=== PATIENT | female | born 1980 | race African-American/Black ===

== ENCOUNTER 2017-02-05 10:57 | Emergency (ER) | payer OTHER ==
[2017-02-05 11:05] VITALS: BMI 23.8
[2017-02-05 11:31] LABS: BASOPHIL 0.8 % (0-2.0); EOSINOPHIL 5.6 % (0-4.5); MCH 31.3 pg (25.7-33.7); MEAN PLT VOLUME 7.4 fl (7.5-11.1); PLATELET COUNT 255 K/MM3 (134-434); RDW 13.4 % (11.6-15.6); WHITE BLOOD COUNT 6.6 K/mm3 (4.0-10.0)
[2017-02-05 11:58] LABS: ALBUMIN 3.5 g/dl (3.4-5.0); ANION GAP 8 (8-16); BILIRUBIN,TOTAL 0.7 mg/dL (0.2-1.0); CALCIUM 8.5 mg/dL (8.5-10.1); CO2 28 mmol/L (21-32); CREATININE 0.5 mg/dL (0.55-1.02); GLUCOSE,RANDOM 79 mg/dL (74-106); SGOT/AST 18 U/L (15-37); SGPT/ALT 11 U/L (12-78)
[2017-02-05 12:00] LABS: ALK PHOS 47 U/L (45-117)
[2017-02-05 12:41] LABS: URINE APPEARANCE CLEAR; URINE COLOR RED; URINE GLUCOSE (UA) NEGATIVE (NEGATIVE); URINE KETONE NEGATIVE (NEGATIVE); URINE NITRITE NEGATIVE (NEGATIVE); URINE UROBILINOGEN 4.0 E.U/dl E.U./dl (0.2-1.0)
[2017-02-05 12:45] LABS: URINE BLOOD 3+ (NEGATIVE); URINE LEUK ESTERASE 2+ (NEGATIVE); URINE PROTEIN 2+ (NEGATIVE)
[2017-02-05 12:46] LABS: URINE BACTERIA RARE /hpf (NONE SEEN); URINE MUCUS MODERATE; URINE RBC 101 /hpf (0-3); URINE WBC 87 /hpf (3-5)
--- NOTE | 2017-02-05 13:14 | PDOC ---
History of Present Illness - General History Source: Patient - History of Present Illness Timing/Duration: reports: constant Quality: reports: moderate <Toby Cuevas - Last Filed: 02/05/17 14:05> <Elio Ramires - Last Filed: 02/07/17 20:02> - General Chief Complaint: Pain Stated Complaint: ABD PAIN Time Seen by Provider: 02/05/17 11:09 Past History - Past Medical History Anemia: Yes Asthma: No Cancer: No Cardiac Disorders: No Diabetes: No HTN: No Seizures: No Thyroid Disease: No - Reproductive History Is Patient Now?: No (#): 10 Para: 4 Therapeutic (s) & number: Yes (3) Spontaneous : 2 - Psycho/Social/Smoking Cessation Hx Anxiety: No Suicidal Ideation: No Smoking Status: No Smoking History: Never smoked Number of Cigarettes Smoked Daily: 0 Hx Alcohol Use: No Drug/Substance Use Hx: No Substance Use Type: None Hx Substance Use Treatment: No <Toby Cuevas - Last Filed: 02/05/17 14:05> <Elio Ramires - Last Filed: 02/07/17 20:02> - Past Medical History Allergies/Adverse Reactions: Allergies Allergy/AdvReac Type Severity Reaction Status Date / Time No Known Allergies Allergy Verified 02/05/17 11:04 Home Medications: Ambulatory Orders Amoxicillin/Potassium Clav [Augmentin 875-125 Tablet] 1 each PO BID #10 tablet 11/25/16 Methylergonovine Maleate [Methergine] 0.2 mg PO Q6H #3 tablet 02/05/17 Review of Systems - Review of Systems Constitutional: No: Chills, Fever ABD/GI: Yes: Abdominal cramping. No: Constipated, Nausea, Vomiting : Yes: Other (vag bleeding). No: Flank Pain Musculoskeletal: No: Back Pain <Toby Cuevas - Last Filed: 02/05/17 14:05> *Physical Exam - Vital Signs Last Vital Signs Temp Pulse Resp BP Pulse Ox 98.9 F 88 20 115/83 100 02/05/17 11:01 02/05/17 11:01 02/05/17 11:01 02/05/17 11:01 02/05/17 11:01 - Physical Exam General Appearance: Yes: Appropriately Dressed. No: Apparent Distress HEENT: positive: Normal Voice Neck: positive: Supple Respiratory/Chest: negative: Respiratory Distress Female Pelvic Exam: positive: vaginal bleeding (sig vag bleed, os closed) Gastrointestinal/Abdominal: positive: Normal Bowel Sounds, Tender, Soft. negative: Distended, Guarding Integumentary: positive: Dry, Warm Neurologic: positive: Fully Oriented, Alert, Normal Mood/Affect <Toby Cuevas - Last Filed: 02/05/17 14:05> - Vital Signs Last Vital Signs Temp Pulse Resp BP Pulse Ox 99.1 F 57 L 16 103/59 99 02/05/17 15:21 02/05/17 15:21 02/05/17 15:21 02/05/17 15:21 02/05/17 15:21 <Elio Ramires - Last Filed: 02/07/17 20:02> ED Treatment Course - LABORATORY CBC & Chemistry Diagram: 02/05/17 11:12 02/05/17 11:12 - ADDITIONAL ORDERS Additional order review: Laboratory Results 02/05/17 11:12 Sodium 142 Potassium 3.1 L Chloride 106 Carbon Dioxide 28 Anion Gap 8 BUN 7 D Creatinine 0.5 L D Creat Clearance w eGFR > 60 Random Glucose 79 Calcium 8.5 Total Bilirubin 0.7 AST 18 ALT 11 L Alkaline Phosphatase 47 Total Protein 7.0 Albumin 3.5 Beta HCG, Quant 639.3 02/05/17 11:12 RBC 3.38 L MCV 92.0 MCHC 34.0 RDW 13.4 D MPV 7.4 L Neutrophils % 59.0 D Lymphocytes % 28.0 D Monocytes % 6.6 Eosinophils % 5.6 H D Basophils % 0.8 - RADIOLOGY Radiology Studies Ordered: Category Date Time Status PELVIS(OTHER) US [US] Stat Ultrasound 02/05/17 12:27 Ordered TRANSVAGINAL ULTRASOUND US [US] Stat Ultrasound 02/05/17 12:28 Ordered <Toby Cuevas - Last Filed: 02/05/17 14:05> - LABORATORY CBC & Chemistry Diagram: 02/05/17 11:12 02/05/17 11:12 - ADDITIONAL ORDERS Additional order review: 02/05/17 11:12 RBC 3.38 L MCV 92.0 MCHC 34.0 RDW 13.4 D MPV 7.4 L Neutrophils % 59.0 D Lymphocytes % 28.0 D Monocytes % 6.6 Eosinophils % 5.6 H D Basophils % 0.8 - Medications Given in the ED: ED Medications Discontinued Medications Generic Name Dose Route Start Last Admin Trade Name Yuridia PRN Reason Stop Dose Admin Acetaminophen 650 mg 02/05/17 13:38 02/05/17 14:00 Tylenol - PO 02/05/17 13:39 650 mg ONCE ONE Administration Methylergonovine Maleate 0.2 mg 02/05/17 13:56 02/05/17 14:25 Methergine - PO 02/05/17 13:57 0.2 mg ONCE ONE Administration <Elio Ramires - Last Filed: 02/07/17 20:02> Medical Decision Making - Medical Decision Making 02/05/17 12:36 36 yo F, (4 elec ABs, 1 spon AB), s/p D&C at OSH 9 days ago and states she was felling well until 3 dys ago when pt began having lower abd cramping w/ bloating and sig vag bleed w/ clots. No n/v/f/c or dysuria. No change in BM See exam Abd pain and vag bleed s/p recent D&C R/o RPOC Stable w/ +ttp diffusely to lower abd and sig vag bleed -labs -US 02/05/17 13:16 02/05/17 13:37 2.7 heterogeneous material in uterine cavity on US, ?clotted blood vc retained POC. Labs wnl and pt remains stable. Will c/w REFRIGERATOR ASSEMBLER for recs 02/05/17 13:41 02/05/17 14:02 As per d/w Dr Ernst, rec 4 doses or methergine over the next 24 hrs and for pt to f/u with growth media mixer mushroom 02/05/17 14:05 <Toby Cuevas - Last Filed: 02/05/17 14:05> - Medical Decision Making 02/07/17 20:02 The patient was seen and evaluated in conjunction with CARRIE Cuevas under my direct supervision, ancillary studies were reviewed. I agree with the plan as outlined by CARRIE Cuevas . <Elio Ramires - Last Filed: 02/07/17 20:02> *DC/Admit/Observation/Transfer <Cele Cuevas-Mini - Last Filed: 02/05/17 14:05> <IkeFidencioElio - Last Filed: 02/07/17 20:02> Diagnosis at time of Disposition: Vaginal bleeding - Discharge Dispostion Disposition: HOME Condition at time of disposition: Stable - Prescriptions Prescriptions: Methylergonovine Maleate [Methergine] 0.2 mg PO Q6H #3 tablet - Patient Instructions Printed Discharge Instructions: Therapeutic : Surgical Additional Instructions: Take medication as directed and contact growth media mixer mushroom tomorrow for follow up appt next week
[2017-02-05] MEDS ORDERED: ACETAMINOPHEN 325 MG TABLET (FP) PO ONE (13:38)
[2017-02-05] MEDS ORDERED: METHYLERGONOVINE MALEATE 0.2 MG TABLET (FP) PO ONE (13:56)
[2017-02-05] MEDS ORDERED: ACETAMINOPHEN 325 MG TABLET (FP) ONE (13:57)
--- NOTE | 2017-02-05 15:08 | PDOC ---
*Physical Exam - Vital Signs Last Vital Signs Temp Pulse Resp BP Pulse Ox 98.9 F 88 20 115/83 100 02/05/17 11:01 02/05/17 11:01 02/05/17 11:01 02/05/17 11:01 02/05/17 11:01 ED Treatment Course - LABORATORY CBC & Chemistry Diagram: 02/05/17 11:12 02/05/17 11:12 - ADDITIONAL ORDERS Additional order review: Laboratory Results 02/05/17 02/05/17 11:52 11:12 Sodium 142 Potassium 3.1 L Chloride 106 Carbon Dioxide 28 Anion Gap 8 BUN 7 D Creatinine 0.5 L D Creat Clearance w eGFR > 60 Random Glucose 79 Calcium 8.5 Total Bilirubin 0.7 AST 18 ALT 11 L Alkaline Phosphatase 47 Total Protein 7.0 Albumin 3.5 Beta HCG, Quant 639.3 Urine Color Red Urine Appearance Clear Urine pH 6.0 Ur Specific [place] 1.023 Urine Protein 2+ H Urine Glucose (UA) Negative Urine Ketones Negative Urine Blood 3+ H Urine Nitrite Negative Urine Bilirubin 2.0 Urine Urobilinogen 4.0 e.u/dl H Ur Leukocyte Esterase 2+ H Urine RBC 101 Urine WBC 87 Ur Epithelial Cells Moderate Urine Bacteria Rare Urine Mucus Moderate 02/05/17 11:12 RBC 3.38 L MCV 92.0 MCHC 34.0 RDW 13.4 D MPV 7.4 L Neutrophils % 59.0 D Lymphocytes % 28.0 D Monocytes % 6.6 Eosinophils % 5.6 H D Basophils % 0.8 - RADIOLOGY Radiology Studies Ordered: Category Date Time Status PELVIS(OTHER) US [US] Stat Ultrasound 02/05/17 12:27 Completed TRANSVAGINAL ULTRASOUND US [US] Stat Ultrasound 02/05/17 12:28 Completed - Medications Given in the ED: ED Medications Discontinued Medications Generic Name Dose Route Start Last Admin Trade Name Freq PRN Reason Stop Dose Admin Acetaminophen 650 mg 02/05/17 13:38 02/05/17 14:00 Tylenol - PO 02/05/17 13:39 650 mg ONCE ONE Administration Methylergonovine Maleate 0.2 mg 02/05/17 13:56 02/05/17 14:25 Methergine - PO 02/05/17 13:57 0.2 mg ONCE ONE Administration *DC/Admit/Observation/Transfer Diagnosis at time of Disposition: Vaginal bleeding - Discharge Dispostion Disposition: HOME Condition at time of disposition: Stable - Prescriptions Prescriptions: Methylergonovine Maleate [Methergine] 0.2 mg PO Q6H #3 tablet - Referrals - Patient Instructions Printed Discharge Instructions: Therapeutic : Surgical Additional Instructions: Take medication as directed and contact greaser operator tomorrow for follow up appt next week - Post Discharge Activity
[2017-02-05 15:23] VITALS: BP 103/59; PULSE 57; TEMP 99.1
== END 2017-02-05 15:23 | disposition home or self-care (01) ==
LOC: JER 10:57
DX: O03.1 Delayed or excessive hemorrhage following incomplete spontaneous abortion (principal)
CPT/HCPCS: 36415; 76830-TC; 76856-TC; 80053; 81003; 81015; 84702; 85025; 99281-25

== ENCOUNTER 2017-03-09 12:44 | Emergency (ER) | payer OTHER ==
[2017-03-09 12:57] VITALS: BMI 23.8
--- NOTE | 2017-03-09 13:38 | PDOC ---
History of Present Illness - General Chief Complaint: Pain Stated Complaint: ABD PAIN Time Seen by Provider: 03/09/17 13:21 History Source: Patient Exam Limitations: No Limitations - History of Present Illness Travel History: No Initial Comments: 03/09/17 14:31 36 yo A4 SpAb1 F with no significant PMHx presents with one week history of abdominal pain. She describes intermittent 8/10 crampy non-radiating left sided suprapubic pain. No alleviating or aggravating factors. Only associated symptom is nausea. She was here one month prior s/p D&C for planned to r/o retained products and discharged with Methergin will good result. As per her this is not the same pain. Denies fever, chills, sweats, CP, ALCOCER, SOB, vomiting, diarrhea or urinary symptoms. Timing/Duration: reports: intermittent Quality: reports: moderate Abdominal Pain Onset Location: reports: suprapubic Activities at Onset: reports: none Aggravating Factors: improves with: None Alleviating Factors: improves with: None Past History - Travel Traveled outside of the country in the last 30 days: No Close contact w/someone who was outside of country & ill: No - Past Medical History Allergies/Adverse Reactions: Allergies Allergy/AdvReac Type Severity Reaction Status Date / Time No Known Allergies Allergy Verified 03/09/17 12:54 Home Medications: Ambulatory Orders NK [No Known Home Medication] 03/09/17 Anemia: Yes Asthma: No Cancer: No Cardiac Disorders: No Diabetes: No HTN: No Seizures: No Thyroid Disease: No - Reproductive History Is Patient Now?: (unk) (#): 9 Para: 4 Cervical CA: No Dysfunctional Uterine Bleeding: No Ectopic : No Endometrial CA: No Polycystic Ovaries: No Therapeutic (s) & number: Yes (5) Tubal Ligation: No Spontaneous : 2 - Psycho/Social/Smoking Cessation Hx Anxiety: No Suicidal Ideation: No Smoking Status: No Smoking History: Never smoked Have you smoked in the past 12 months: No Number of Cigarettes Smoked Daily: 0 Information on smoking cessation initiated: No Hx Alcohol Use: No Drug/Substance Use Hx: No Substance Use Type: None Hx Substance Use Treatment: No Review of Systems - Review of Systems Able to Perform ROS?: Yes Is the patient limited Salvadorean proficient: No Constitutional: No: Chills, Diaphoresis, Fever ABD/GI: Yes: Nausea, Abdominal cramping *Physical Exam - Vital Signs Last Vital Signs Temp Pulse Resp BP Pulse Ox 98.2 F 69 18 122/68 98 03/09/17 12:54 03/09/17 12:54 03/09/17 12:54 03/09/17 12:54 03/09/17 12:54 - Physical Exam General Appearance: No: Apparent Distress HEENT: positive: EOMI, CLYDE Neck: positive: Supple Respiratory/Chest: positive: Lungs Clear, Normal Breath Sounds. negative: Respiratory Distress, Accessory Muscle Use Cardiovascular: positive: Regular Rhythm, Regular Rate, S1, S2. negative: Edema , JVD, Murmur Female Pelvic Exam: positive: normal external exam, cervical os closed, normal adnexa, vaginal bleeding. negative: discharge, adnexal tenderness Gastrointestinal/Abdominal: positive: Normal Bowel Sounds, Flat, Soft, Tenderness (left sided suprapubic ). negative: Rebound Musculoskeletal: positive: Normal Inspection. negative: CVA Tenderness Extremity: positive: Normal Inspection, Normal Range of Motion Integumentary: positive: Normal Color, Dry, Warm. negative: Cyanotic, Erythema , Jaundice Neurologic: positive: ware tester II-XII NML intact, Fully Oriented, Alert, Normal Mood/ Affect, Motor Strength 5/5 ED Treatment Course - LABORATORY CBC & Chemistry Diagram: 03/09/17 13:57 03/09/17 13:57 - RADIOLOGY Radiology Studies Ordered: 03/09/17 16:01 EXAM#: TYPE/EXAM: RESULT: [id number] US/TRANSVAGINAL US PREG HISTORY PROVIDED: Pelvic pain. Real time examination of the pelvis utilizing both the transabdominal and transvaginal probes demonstrates the following: The uterus is normal in size measuring 10.6 x 6.0 x 4.6 cm. No uterine masses are seen. A normal appearing endometrium of 4 mm thickness was demonstrated. The ovaries are normal in size and texture with multiple small cysts present bilaterally. This appearance is suspicious for polycystic ovary syndrome. Clinical correlation is advised. Arterial flow is documented to both ovaries with no evidence of torsion. There is no evidence of adnexal masses or free pelvic fluid collections. IMPRESSION: Findings suspicious for polycystic ovary syndrome. Clinical correlation and follow-up recommended. Please see above discussion. Medical Decision Making - Medical Decision Making 03/09/17 14:45 A:36 yo A4 SpAb1 F with no significant PMHx presents with one week history of abdominal pain. Pelvic exam performed with some significant suprapubic tenderness but no CMT. Possible or ovarian pathology. P: * CBC,CMP,UA, Quantitative BHCG * Transvaginal US 03/09/17 16:05 * US shows possible Polycystic ovaries. 03/09/17 16:28 * Pain most likely ruptured cyst. * Has an appointment to see Dr. Krause on Monday * will need follow up BHCG. *DC/Admit/Observation/Transfer Diagnosis at time of Disposition: Polycystic disease, ovaries, Ruptured ovarian cyst - Discharge Dispostion Disposition: HOME Condition at time of disposition: Stable Admit: No - Patient Instructions Printed Discharge Instructions: DI for Ovarian Cyst, Polycystic Ovary Syndrome Additional Instructions: Follow up with SEMICONDUCTOR PROCESSOR on Monday . Motrin is ok for pain. regular diet. Increase activity as tolerated. If pain worsens or you develop fever/chills please return to ED.
[2017-03-09] MEDS ORDERED: ACETAMINOPHEN 1000 MG/100 ML VIAL (NON FORMULARY) IVPB ONE (14:03)
[2017-03-09] MEDS ORDERED: ACETAMINOPHEN INJECTION 100 ML IVPB ONE (14:24)
--- NOTE | 2017-03-09 14:33 | PDOC ---
Attending Attestation - Resident Resident Name: Sedrick Valente - ED Attending Attestation I have performed the following: I have examined & evaluated the patient, The case was reviewed & discussed with the resident, I agree w/resident's findings & plan - HPI HPI: 03/09/17 14:33 36 yo female Ab4 SpAb1 had D+C/Ab 01/26 and then seen in the ED 02/05 with possible retained POC The ultrasound at that time showed some heterogeneous material in the uterine cavity, and she was treated with 4 doses of Methergine over the next 24 hours, and did well Presents with some vaginal spotting and crampy pelvic pain - Physicial Exam PE: 03/09/17 14:42 PELVIC EXAMINATION: External genitalia: Normal without lesions Vagina: There is some vaginal spotting/blood Cervix: The cervix is long and closed with no cervical motion tenderness Uterus: There is mild uterine tenderness Adnexa: There is no right adnexal tenderness, there is no left adnexal tenderness - Medical Decision Making 03/09/17 15:47 Laboratory Results - last 24 hr 03/09/17 03/09/17 03/09/17 13:57 13:57 14:00 WBC 4.1 D RBC 3.71 Hgb 11.5 Hct 34.9 MCV 94.2 MCHC 33.0 RDW 13.1 Plt Count 179 D MPV 9.0 D Neutrophils % 40.9 L D Lymphocytes % 42.2 H D Monocytes % 7.5 Eosinophils % 8.5 H Basophils % 0.9 Sodium 141 Potassium 3.4 L Chloride 104 Carbon Dioxide 28 Anion Gap 9 BUN 2 L* D Creatinine 0.5 L Creat Clearance w eGFR > 60 Random Glucose 76 Calcium 9.0 Total Bilirubin 0.5 D AST 14 L D ALT 10 L Alkaline Phosphatase 42 L Total Protein 6.7 Albumin 3.7 Beta HCG, Quant 4.9 Urine HCG, Qual Negative Quant beta pending Blood type AB+ from prior blood work Ultrasound The uterus is normal in size The endometrium is normal The ovaries are normal, with multiple small cysts bilaterally Arterial flow was documented in both ovaries with no evidence of torsion No adnexal masses or free pelvic fluid collections Final impression Findings suspicious for polycystic ovarian syndrome 03/09/17 15:57 Quant beta 4.9 03/09/17 16:26 Case and all results discussed with Dr Chacha - pt has appt on Tuesday 03/13 She feels that the quantitative beta 4.9 is left over from her recent termination She will follow the patient in the office on Tuesday 03/13
[2017-03-09 15:05] LABS: BASOPHIL 0.9 % (0-2.0); EOSINOPHIL 8.5 % (0-4.5); MEAN CELL VOLUME 94.2 fl (80-96); NEUTROPHILS 40.9 % (42.8-82.8); PLATELET COUNT 179 K/MM3 (134-434); RDW 13.1 % (11.6-15.6); WHITE BLOOD COUNT 4.1 K/mm3 (4.0-10.0)
[2017-03-09 15:14] LABS: ALBUMIN 3.7 g/dl (3.4-5.0); ANION GAP 9 (8-16); BILIRUBIN,TOTAL 0.5 mg/dL (0.2-1.0); CO2 28 mmol/L (21-32); CREATININE 0.5 mg/dL (0.55-1.02); GLUCOSE,RANDOM 76 mg/dL (74-106); SGOT/AST 14 U/L (15-37); SGPT/ALT 10 U/L (12-78); TOT PROT 6.7 g/dl (6.4-8.2)
[2017-03-09 15:16] LABS: ALK PHOS 42 U/L (45-117)
[2017-03-09 15:35] LABS: URINE APPEARANCE CLEAR; URINE BILIRUBIN NEGATIVE (NEGATIVE); URINE COLOR STRAW; URINE GLUCOSE (UA) NEGATIVE (NEGATIVE); URINE KETONE NEGATIVE (NEGATIVE); URINE LEUK ESTERASE NEGATIVE (NEGATIVE); URINE NITRITE NEGATIVE (NEGATIVE); URINE PROTEIN NEGATIVE (NEGATIVE); URINE UROBILINOGEN NEGATIVE E.U./dl (0.2-1.0)
[2017-03-09 16:01] LABS: URINE BLOOD 2+ (NEGATIVE)
[2017-03-09 16:33] LABS: CALCIUM OXALATE CRYSTALS RARE /hpf (NONE SEEN); URINE BACTERIA RARE /hpf (NONE SEEN); URINE MUCUS FEW; URINE RBC <1 /hpf (0-3); URINE WBC 1 /hpf (3-5)
[2017-03-09 16:56] VITALS: BP 110/69; PULSE 73; TEMP 98
== END 2017-03-09 16:56 | disposition home or self-care (01) ==
LOC: JER 12:44
PROC: 3E033NZ Introduction of Analgesics, Hypnotics, Sedatives into Peripheral Vein, Percutaneous Approach (ICD-10-PCS; principal; 2017-03-09)
DX: N83.292 Other ovarian cyst, left side (principal); N83.291 Other ovarian cyst, right side; E28.2 Polycystic ovarian syndrome
CPT/HCPCS: 36415; 76817-TC; 80053; 81003; 81015; 84702; 84703; 85025; 87491; 87591; 99284-25

== ENCOUNTER 2018-03-07 08:20 | Emergency (ER) | payer OTHER ==
[2018-03-07 08:39] VITALS: BMI 23.8
--- NOTE | 2018-03-07 08:49 | PDOC ---
Attending Attestation - HPI HPI: 03/07/18 08:55 The patient is a 37 year old female, with no significant past medical history, who presents to the emergency department with a headache for approximately 2 days. The patient reports her headache starts in her frontal lobe bilaterally and radiates to the occiput. She reports associated blurry vision for 2 days, which has since resolved. Patient reports she has taken Excedrin Migraine for her symptoms with mild relief. She denies any dizziness, lightheadedness, or photophobia. She reports mild epigastric discomfort, but denies any nausea or vomiting. Patient reports similar symptoms over the past year, which typically resolved with Excedrin. No fever, chills, neck or back pain. - Medical Decision Making 03/07/18 08:55 Documentation prepared by Sinai Leiva, acting as director of medical staff services for Tai Bennett MD. <Sinai Leiva - Last Filed: 03/07/18 11:40> - Resident Resident Name: Pietro Dunaway - ED Attending Attestation I have performed the following: I have examined & evaluated the patient, The case was reviewed & discussed with the resident, I agree w/resident's findings & plan, Exceptions are as noted - Physicial Exam PE: 03/07/18 11:44 nc, atr perrla. eomi cta rrr sft, nt, nd cn ii-xii grosssly intact, motor-5/5x4, gait-stable - Medical Decision Making 03/07/18 11:45 Patient is well-appearing 37-year-old female who presents with intermittent headache that she's had for past year without focal neurological deficits. CT of head shows no evidence of acute intracranial pathology. I do not suspect subarachnoid hemorrhage or meningitis. Patient asymptomatic after Reglan/ Benadryl therapy. Will discharge with neurological follow-up. <Tai Bennett - Last Filed: 03/07/18 11:46>
[2018-03-07] MEDS ORDERED: METOCLOPRAMIDE HCL INJECTION 10 MG/2 ML VIAL IVPUSH ONE (09:05)
--- NOTE | 2018-03-07 09:05 | PDOC ---
History of Present Illness - General Chief Complaint: Headache Stated Complaint: HEADACHE, NAUSEA Time Seen by Provider: 03/07/18 08:34 History Source: Patient Exam Limitations: No Limitations - History of Present Illness Initial Comments: 03/07/18 09:08 37yo F with no significant medical history presents today with frontal headache which radiates to her temporal areas bilaterally. Pt states she's had these headaches intermittently for about one year, however she has been taking Excedrin migraine and Aleve which has usually terminated her headaches. She states her headaches are usually preceded by blurry vision which subsides once her headache has been sustained for a few minutes. Pt also endorses some nausea and abdominal pain described as a dull achy epigastric pain. Pt denies any vomiting, gait difficulties, changes in strength or sensation, SOB, CP/ discomfort, palpitations, dysuria, polyuria. Pt denies any workup in the past for her headaches. She notes going to some office many years ago and getting medication, however can't remember who it was or what she received. Past History - Past Medical History Allergies/Adverse Reactions: Allergies Allergy/AdvReac Type Severity Reaction Status Date / Time No Known Allergies Allergy Verified 03/07/18 08:32 Home Medications: Ambulatory Orders NK [No Known Home Medication] 03/09/17 Anemia: Yes Asthma: No Cancer: No Cardiac Disorders: No COPD: No DVT: No Diabetes: No HTN: No Seizures: No Thyroid Disease: No - Reproductive History (#): 9 Para: 4 Cervical CA: No Dysfunctional Uterine Bleeding: No Ectopic : No Endometrial CA: No Polycystic Ovaries: No Therapeutic (s) & number: Yes (5) Tubal Ligation: No Spontaneous : 2 - Immunization History Immunization Up to Date: Yes - Suicide/Smoking/Psychosocial Hx Smoking Status: No Smoking History: Never smoked Have you smoked in the past 12 months: No Number of Cigarettes Smoked Daily: 0 Information on smoking cessation initiated: No Hx Alcohol Use: No Drug/Substance Use Hx: No Substance Use Type: None Hx Substance Use Treatment: No Review of Systems - Review of Systems Constitutional: No: Chills, Fever HEENTM: Yes: Blurred Vision. No: Eye Pain, Nose Congestion, Throat Pain Respiratory: No: Cough, Shortness of Breath, Wheezing Cardiac (ROS): No: Chest Pain, Edema, Lightheadedness, Palpitations, Chest Tightness ABD/GI: Yes: Abdominal cramping. No: Abdominal Distended, Constipated, Diarrhea : No: Burning, Dysuria, Frequency, Incontinence Musculoskeletal: Yes: Back Pain. No: Neck Pain Integumentary: No: Lesions, Rash Neurological: Yes: Headache. No: Numbness, Seizure, Tingling, Weakness, Ataxia , Dizziness Psychiatric: Yes: Sleep Pattern Change. No: Anxiety, Depression, Stressors *Physical Exam - Vital Signs Last Vital Signs Temp Pulse Resp BP Pulse Ox 98.5 F 73 16 122/89 100 03/07/18 08:32 03/07/18 08:32 03/07/18 08:32 03/07/18 08:32 03/07/18 08:32 - Physical Exam Comments: 03/07/18 09:23 GEN: NAD, awake, alert, oriented x3, on her phone HEENT: NC/AT, EOMI, ROSS, visual acuity 20/20 both eyes via snellen's chart, moist mucosa Neck: Soft, no lymphadenopathy LUNGS: CTA bilaterally CARDIAC: RRR no murmurs appreciated ABD: Soft, nondistended, normoactive BS, slight tenderness with deep palpation in epigastric area, negative castellanos's, no guarding, no rebound Neuro: Facial symmetry, strength grossly 5/5 in upper and lower extremities, sensation grossly intact in upper and lower extremities, normal gait, normal speech EXT: No edema, 2+ DP pulses ED Treatment Course - LABORATORY CBC & Chemistry Diagram: 03/07/18 09:04 03/07/18 09:04 Medical Decision Making - Medical Decision Making 03/07/18 09:09 37yo F with frontal headaches for about a year with recent exacerbation. blurry vision preceding. Head CT noncontrast r/o any mass IV reglan and benadryl for termination of headache CBC, CMP, Lipase, UA, UHCG, urine Cx 03/07/18 09:25 CBC unremarkable 03/07/18 10:03 On reassessment headache has improved with medication and fluids Awaiting Head Ct --If negative head ct can most likely disposition to home with close follow- up with primary care and possible neurologist from there 03/07/18 11:[address] without abnormalities Pt improved and would like to go home 37yo F with headache and no neurological deficits requiring IV Reglan and Benadryl: Repeat neurological exam: CN II - XII intact, strength 5/5 in distal extremities , sensation remains intact Doubt meningitis: afebrile, no neck stiffness Doubt mass or hemorrhage: head CT ruled out and no residual neurological deficits Discussed with patient about using OTC tylenol for pain control and for close follow-up with primary care physician *DC/Admit/Observation/Transfer Diagnosis at time of Disposition: Headache Qualifiers: Headache type: unspecified Headache chronicity pattern: acute headache Intractability: not intractable Qualified Code(s): R51 - Headache - Discharge Dispostion Disposition: HOME Condition at time of disposition: Stable Admit: No - Referrals - Patient Instructions Printed Discharge Instructions: DI for Headache, DI for Migraine Additional Instructions: You were seen here for your headaches. Your Head CAT scan was normal and your labs were all normal. You were given IV medication for your headache which helped. In the future, try to use over the counter Tylenol for your headaches as Advil or Aleve can irritate the lining of your stomach and may even cause you to bleed if you use them too much for too long. It is VERY important to follow-up with your primary care physician if you continue to have headaches. If you develop signs of increased weakness in your limbs, trouble walking, slurred speech, blurred vision for extended periods of time, please return to the ED. - Post Discharge Activity
[2018-03-07] MEDS ORDERED: METOCLOPRAMIDE HCL INJECTION 10 MG/2 ML VIAL ONE (09:17)
[2018-03-07 09:18] LABS: HEMATOCRIT 35.3 % (32.4-45.2); HEMOGLOBIN 12.3 GM/dL (10.7-15.3); MCH 32.5 pg (25.7-33.7); MCHC 34.7 g/dl (32.0-36.0); MEAN CELL VOLUME 93.9 fl (80-96); MEAN PLT VOLUME 8.2 fl (7.5-11.1); PLATELET COUNT 215 K/MM3 (134-434); RBC 3.76 M/mm3 (3.60-5.2); RDW 13.2 % (11.6-15.6); WHITE BLOOD COUNT 4.4 K/mm3 (4.0-10.0)
[2018-03-07 09:38] LABS: URINE APPEARANCE SLCLOUDY; URINE BILIRUBIN NEGATIVE (<2.0 mg/dL); URINE BLOOD NEGATIVE (NEGATIVE); URINE COLOR YELLOW; URINE GLUCOSE (UA) NEGATIVE (NEGATIVE); URINE KETONE NEGATIVE (NEGATIVE); URINE LEUK ESTERASE NEGATIVE (NEGATIVE); URINE NITRITE NEGATIVE (NEGATIVE); URINE PROTEIN NEGATIVE (NEGATIVE); URINE UROBILINOGEN 4.0 E.U/dl mg/dL (0.2-1.0)
[2018-03-07 09:40] LABS: HCG,QUALITATIVE URINE NEGATIVE
[2018-03-07 09:40] LABS: ALBUMIN 3.8 g/dl (3.4-5.0); ALK PHOS 43 U/L (45-117); ANION GAP 9 (8-16); BILIRUBIN,TOTAL 0.6 mg/dL (0.2-1.0); BLOOD UREA NITROGEN 6 mg/dL (7-18); CALCIUM 8.9 mg/dL (8.5-10.1); CHLORIDE 107 mmol/L (98-107); CO2 26 mmol/L (21-32); CREATININE 0.6 mg/dL (0.55-1.02); GLUCOSE,RANDOM 86 mg/dL (74-106); LIPASE 141 U/L (73-393); POTASSIUM 3.7 mmol/L (3.5-5.1); SGOT/AST 17 U/L (15-37); SGPT/ALT 9 U/L (12-78); SODIUM 142 mmol/L (136-145); TOT PROT 7.4 g/dl (6.4-8.2)
[2018-03-07] MEDS ORDERED: SODIUM CHLORIDE 1,000 ML IV SCH ×2 (09:45)
[2018-03-07 12:27] VITALS: TEMP 97.6
[2018-03-07 12:28] VITALS: BP 116/49; PULSE 64
== END 2018-03-07 12:40 | disposition home or self-care (01) ==
LOC: JER 08:20
PROC: 3E033GC Introduction of Other Therapeutic Substance into Peripheral Vein, Percutaneous Approach (ICD-10-PCS; principal; 2018-03-07)
DX: R51 Headache (principal)
CPT/HCPCS: 36415; 70450-TC; 80053; 81003; 83690; 84703; 85027; 87086; 99284-25; J7030

== ENCOUNTER 2019-02-04 14:55 | Emergency (ER) | payer SELFPAY ==
[2019-02-04 15:15] VITALS: TEMP 99; BMI 23.8
[2019-02-04] MEDS ORDERED: KETOROLAC TROMETHAMINE 30 MG/1 ML VIAL IVPUSH ONE (16:47)
[2019-02-04] MEDS ORDERED: MECLIZINE HCL 25 MG TABLET (FP) PO ONE (16:47)
[2019-02-04] MEDS ORDERED: METOCLOPRAMIDE HCL INJECTION 10 MG/2 ML VIAL IVPB ONE (16:47)
[2019-02-04] MEDS ORDERED: SODIUM CHLORIDE 1,000 ML IV STA (16:47)
--- NOTE | 2019-02-04 16:56 | PDOC ---
History of Present Illness - General Chief Complaint: Headache Stated Complaint: DIZZINESS Time Seen by Provider: 02/04/19 16:11 History Source: Patient Exam Limitations: No Limitations - History of Present Illness Initial Comments: 02/04/19 16:51 38 y/o female presents to the ED with c/o frontal throbbing pressure radiating to ana laura retro orbital accompanies with photosensitivity. pt states took no meds and then this am felt as if the room was spinning accompanied with mild nausea. Pt denies recent head injury, ear pain, throat pain, or dental problems. Pt states hx of migraine and has taken fioricet approx 10 yrs ago which did alleviate the pain which is similar to today's presentation. Associated Symptoms: reports: nausea/vomiting, other (headache and dizziness) Past History - Travel Traveled outside of the country in the last 30 days: No Close contact w/someone who was outside of country & ill: No - Past Medical History Allergies/Adverse Reactions: Allergies Allergy/AdvReac Type Severity Reaction Status Date / Time No Known Allergies Allergy Verified 02/04/19 15:15 Home Medications: Ambulatory Orders NK [No Known Home Medication] 03/09/17 Anemia: Yes Asthma: No Cancer: No Cardiac Disorders: No COPD: No DVT: No Diabetes: No HTN: No Seizures: No Thyroid Disease: No Other medical history: MIGRAINES - Reproductive History (#): 9 Para: 4 Cervical CA: No Dysfunctional Uterine Bleeding: No Ectopic : No Endometrial CA: No Polycystic Ovaries: No Therapeutic (s) & number: Yes (5) Tubal Ligation: No Spontaneous : 2 - Immunization History Immunization Up to Date: Yes - Suicide/Smoking/Psychosocial Hx Smoking Status: No Smoking History: Never smoked Have you smoked in the past 12 months: No Number of Cigarettes Smoked Daily: 0 Hx Alcohol Use: No Drug/Substance Use Hx: No Substance Use Type: None Hx Substance Use Treatment: No Patient Lives Alone: No Lives with/in: spouse/SO Review of Systems - Review of Systems Able to Perform ROS?: No Is the patient limited Greek proficient: No Constitutional: No: Symptoms Reported HEENTM: No: Symptoms Reported Respiratory: No: Symptoms reported Cardiac (ROS): Yes: Lightheadedness ABD/GI: Yes: Nausea. No: Vomiting : No: Symptoms Reported Musculoskeletal: No: Symptoms Reported Integumentary: No: Symptoms Reported Neurological: Yes: Headache, Dizziness Endocrine: No: Symptoms Reported Hematologic/Lymphatic: No: Symptoms Reported *Physical Exam - Vital Signs Last Vital Signs Temp Pulse Resp BP Pulse Ox 99.0 F 62 14 116/74 98 02/04/19 15:11 02/04/19 15:11 02/04/19 15:11 02/04/19 15:11 02/04/19 15:11 - Physical Exam General Appearance: Yes: Nourished, Appropriately Dressed. No: Apparent Distress HEENT: positive: EOMI, CLYDE, TMs Normal, Pharynx Normal. negative: Pale Conjunctivae Neck: positive: Supple Respiratory/Chest: positive: Lungs Clear, Normal Breath Sounds. negative: Respiratory Distress, Accessory Muscle Use Cardiovascular: positive: Regular Rhythm, Regular Rate. negative: Murmur Gastrointestinal/Abdominal: positive: Soft. negative: Tenderness Extremity: positive: Normal Inspection Integumentary: positive: Normal Color, Warm, Moist Neurologic: positive: Normal Mood/Affect, Motor Strength 5/5 (ambulatory), Other (- hallpikes but states felt dizzy with movement to the right) ED Treatment Course - LABORATORY CBC & Chemistry Diagram: 02/04/19 16:58 02/04/19 16:58 Medical Decision Making - Medical Decision Making 02/04/19 17:00 CC: headache, nausea and dizziness since yesterday Exam: c/o dizziness w/ rt sided head movement Plan: labs, ivf, reglan, toradol, meclizine, urine, if - and no improvement will order head ct 02/04/19 17:50 Laboratory Tests 02/04/19 02/04/19 02/04/19 16:58 16:58 16:58 WBC 6.6 Hgb 13.3 Hct 37.8 Absolute Neuts (auto) 3.6 Sodium 137 Potassium 3.9 Chloride 104 Carbon Dioxide 27 Anion Gap 6 L BUN 6 L Creatinine 0.6 Creat Clearance w eGFR 112.49 Random Glucose 77 Calcium 8.6 Magnesium 2.0 Total Bilirubin 0.4 AST 17 ALT 12 L Alkaline Phosphatase 44 L Total Protein 7.6 Albumin 4.2 Urine Ketones Negative Urine Bilirubin Negative Urine HCG, Qual Negative 02/04/19 18:25 Pt states feeling better and will be discharged home with meclizine and motrin *DC/Admit/Observation/Transfer Diagnosis at time of Disposition: Migraine - Discharge Dispostion Disposition: HOME Condition at time of disposition: Improved - Referrals Referrals: Jerrell Webster MD [Primary Care Provider] - - Patient Instructions Printed Discharge Instructions: DI for Migraine Additional Instructions: Please take motrin 600mg for headache Take Meclizine as needed for dizziness. Return to the ED if symptoms worsen - Post Discharge Activity
[2019-02-04 17:23] LABS: BASO % 0.5 % (0-2.0); EOS % 2.1 % (0-4.5); HEMATOCRIT 37.8 % (32.4-45.2); HEMOGLOBIN 13.3 GM/dL (10.7-15.3); LYMPH % 37.7 % (8-40); MCH 33.1 pg (25.7-33.7); MCHC 35.1 g/dl (32.0-36.0); MEAN CELL VOLUME 94.2 fl (80-96); MEAN PLT VOLUME 8.7 fl (7.5-11.1); MONO % 6.1 % (3.8-10.2); NEUT % 53.6 % (42.8-82.8); PLATELET COUNT 211 K/MM3 (134-434); RBC 4.02 M/mm3 (3.60-5.2); RDW 13.4 % (11.6-15.6); WHITE BLOOD COUNT 6.6 K/mm3 (4.0-10.0)
[2019-02-04 17:26] LABS: URINE APPEARANCE CLEAR; URINE BILIRUBIN NEGATIVE (NEGATIVE); URINE COLOR YELLOW; URINE GLUCOSE (UA) NEGATIVE (NEGATIVE); URINE KETONE NEGATIVE (NEGATIVE); URINE LEUK ESTERASE NEGATIVE (NEGATIVE); URINE NITRITE NEGATIVE (NEGATIVE); URINE PROTEIN NEGATIVE (NEGATIVE)
[2019-02-04 17:29] LABS: HCG,QUALITATIVE URINE Negative
[2019-02-04 17:35] LABS: ALBUMIN 4.2 g/dl (3.4-5.0); ALK PHOS 44 U/L (45-117); ANION GAP 6 MMOL/L (8-16); BILIRUBIN,TOTAL 0.4 mg/dL (0.2-1); BLOOD UREA NITROGEN 6 mg/dL (7-18); CALCIUM 8.6 mg/dL (8.5-10.1); CHLORIDE 104 mmol/L (98-107); CO2 27 mmol/L (21-32); CREATININE 0.6 mg/dL (0.55-1.3); GLUCOSE,RANDOM 77 mg/dL (74-106); POTASSIUM 3.9 mmol/L (3.5-5.1); SGOT/AST 17 U/L (15-37); SGPT/ALT 12 U/L (13-61); SODIUM 137 mmol/L (136-145); TOT PROT 7.6 g/dl (6.4-8.2)
[2019-02-04] MEDS ORDERED: KETOROLAC TROMETHAMINE 30 MG/1 ML VIAL ONE (17:45)
[2019-02-04] MEDS ORDERED: MECLIZINE HCL 25 MG TABLET (FP) ONE (17:45)
[2019-02-04] MEDS ORDERED: METOCLOPRAMIDE HCL INJECTION 10 MG/2 ML VIAL ONE (17:45)
[2019-02-04 18:45] VITALS: BP 122/70; PULSE 74
--- NOTE | 2019-02-05 09:21 | EKG ---
Test Reason : Blood Pressure : / mmHG Vent. Rate : 054 BPM Atrial Rate : 054 BPM P-R Int : 124 ms QRS Dur : 082 ms QT Int : 434 ms P-R-T Axes : 030 026 023 degrees QTc Int : 411 ms SINUS BRADYCARDIA OTHERWISE NORMAL ECG WHEN COMPARED WITH ECG OF 25-OCT-2011 02:15, VENT. RATE HAS DECREASED BY 31 BPM Confirmed by ALYX MAO MD ([id number]) on 02/05/2019 9:21:12 AM Referred By: Confirmed By:ALYX MAO MD
== END 2019-02-04 18:37 | disposition home or self-care (01) ==
LOC: JER 14:55
PROC: 3E0333Z Introduction of Anti-inflammatory into Peripheral Vein, Percutaneous Approach (ICD-10-PCS; principal; 2019-02-04)
PROC: 3E033GC Introduction of Other Therapeutic Substance into Peripheral Vein, Percutaneous Approach (ICD-10-PCS; 2019-02-04)
DX: G43.909 Migraine, unspecified, not intractable, without status migrainosus (principal)
CPT/HCPCS: 36415; 80053; 81003; 83735; 84703; 85025; 93005; 93010; 99283-25; J7030

== ENCOUNTER 2019-05-24 18:25 | Emergency (ER) | payer OTHER ==
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
[2019-05-24 18:38] VITALS: BP 131/72; PULSE 89; TEMP 98.6; BMI 23.3
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
[2019-05-24] MEDS ORDERED: ACETAMINOPHEN 325 MG TABLET (FP) PO ONE (19:06)
[2019-05-24] MEDS ORDERED: ACETAMINOPHEN 325 MG TABLET (FP) ONE (19:08)
== END 2019-05-24 21:28 | disposition home or self-care (01) ==
LOC: JERFT 18:25 → JER 18:25 → JERFT 21:28
DX: S09.8XXA Other specified injuries of head, initial encounter (principal); S19.80XA Other specified injuries of unspecified part of neck, initial encounter; M54.2 Cervicalgia; M25.552 Pain in left hip; R51 Headache; V49.59XA Passenger injured in collision with other motor vehicles in traffic accident, initial encounter; Y92.414 Local residential or business street as the place of occurrence of the external cause; Y93.89 Activity, other specified; Y99.8 Other external cause status
CPT/HCPCS: 70450-TC; 72125-TC; 73552-TC-LT-FY; 73590-TC-RT-FY; 84703; 99281-25

== ENCOUNTER 2021-06-17 11:06 | Emergency (ER) | payer OTHER ==
[2021-06-17 11:24] VITALS: BP 115/77; PULSE 87; TEMP 99.6; BMI 21.9
[2021-06-17] MEDS ORDERED: ACETAMINOPHEN 1000 MG/100 ML VIAL (NON FORMULARY) IVPB ONE (12:14)
[2021-06-17] MEDS ORDERED: SODIUM CHLORIDE 1,000 ML IV STA (12:14)
[2021-06-17] MEDS ORDERED: METOCLOPRAMIDE HCL INJECTION 10 MG/2 ML VIAL IVPUSH ONE (12:14)
[2021-06-17] MEDS ORDERED: METOCLOPRAMIDE HCL INJECTION 10 MG/2 ML VIAL ONE (12:34)
[2021-06-17] MEDS ORDERED: ACETAMINOPHEN INJECTION 100 ML IVPB ONE (12:34)
[2021-06-17 13:30] LABS: HCG,QUALITATIVE URINE Negative
[2021-06-17 13:37] LABS: EPI CELLS >36 /uL (0-25.1); HYALINE CASTS 7 /uL (0-3.1); PH,URINE 6.5 (5.0-8.0); URINE APPEARANCE CLOUDY; URINE BACTERIA 925 /uL (0-1359); URINE BILIRUBIN NEGATIVE (NEGATIVE); URINE COLOR DK YELLOW; URINE GLUCOSE (UA) NEGATIVE (NEGATIVE); URINE KETONE TRACE (NEGATIVE); URINE LEUK ESTERASE TRACE (NEGATIVE); URINE NITRITE NEGATIVE (NEGATIVE); URINE PROTEIN TRACE (NEGATIVE); URINE WBC 34 /uL (0-25.8)
[2021-06-17 13:42] LABS: URINE RBC 163.3 /uL (0-23.9)
== END 2021-06-17 16:48 | disposition home or self-care (01) ==
LOC: JER 11:06
PROC: 3E0333Z Introduction of Anti-inflammatory into Peripheral Vein, Percutaneous Approach (ICD-10-PCS; principal; 2021-06-17)
PROC: 3E033GC Introduction of Other Therapeutic Substance into Peripheral Vein, Percutaneous Approach (ICD-10-PCS; 2021-06-17)
PROC: 3E033GC Introduction of Other Therapeutic Substance into Peripheral Vein, Percutaneous Approach (ICD-10-PCS; 2021-06-17)
PROC: 3E0337Z Introduction of Electrolytic and Water Balance Substance into Peripheral Vein, Percutaneous Approach (ICD-10-PCS; 2021-06-17)
DX: G43.909 Migraine, unspecified, not intractable, without status migrainosus (principal); M54.42 Lumbago with sciatica, left side
CPT/HCPCS: 81003; 84703; 96361; 96374; 96375; 99284-25; C9803; J0131; U0003; U0005

== ENCOUNTER 2021-10-25 16:52 | Emergency (ER) | payer OTHER ==
[2021-10-25 17:01] VITALS: BP 106/71; PULSE 67; TEMP 98.1; BMI 22.8
== END 2021-10-25 18:11 | disposition home or self-care (01) ==
LOC: JERFT 16:52 → JER 16:52 → JERFT 18:11
DX: L98.8 Other specified disorders of the skin and subcutaneous tissue (principal)
CPT/HCPCS: 99282-25

== ENCOUNTER 2022-04-19 08:48 | Emergency (ER) | payer OTHER ==
[2022-04-19 09:15] VITALS: BP 129/67; PULSE 78; TEMP 98.8; BMI 23.8
[2022-04-19] MEDS ORDERED: KETOROLAC TROMETHAMINE 30 MG/1 ML VIAL IM ONE (09:19)
[2022-04-19] MEDS ORDERED: KETOROLAC TROMETHAMINE 30 MG/1 ML VIAL ONE (09:39)
== END 2022-04-19 10:02 | disposition home or self-care (01) ==
LOC: JERFT 08:48
PROC: 3E023GC Introduction of Other Therapeutic Substance into Muscle, Percutaneous Approach (ICD-10-PCS; principal; 2022-04-19)
DX: M25.552 Pain in left hip (principal); M25.512 Pain in left shoulder
CPT/HCPCS: 99284-25

== ENCOUNTER 2022-07-12 11:31 | Emergency (ER) | payer OTHER ==
[2022-07-12 11:37] VITALS: BP 116/75; PULSE 82; RESP 18; TEMP 99; BMI 22.6
[2022-07-12] MEDS ORDERED: IBUPROFEN 400 MG TABLET (FP) PO ONE ×2 (11:50→11:52)
== END 2022-07-12 13:35 | disposition home or self-care (01) ==
LOC: FER 11:31
DX: R51.9 Headache, unspecified (principal)
CPT/HCPCS: 99283-25

== ENCOUNTER 2022-12-13 13:19 | Emergency (ER) | payer OTHER ==
[2022-12-13 13:28] VITALS: BP 104/68; PULSE 62; RESP 20; TEMP 99.4; BMI 22.8
[2022-12-13] MEDS ORDERED: ACETAMINOPHEN 500 MG TABLET (FP) PO ONE (14:04)
[2022-12-13] MEDS ORDERED: ACETAMINOPHEN 500 MG TABLET (FP) ONE (14:07)
[2022-12-13] MEDS ORDERED: IBUPROFEN 400 MG TABLET (FP) PO ONE ×2 (14:07→14:11)
[2022-12-13] MEDS ORDERED: METOCLOPRAMIDE HCL INJECTION 10 MG/2 ML VIAL IVPB ONE (14:08)
[2022-12-13] MEDS ORDERED: METOCLOPRAMIDE HCL INJECTION 10 MG/2 ML VIAL ONE (14:11)
== END 2022-12-13 14:44 | disposition home or self-care (01) ==
LOC: JERFT 13:19 → JER 13:19 → JERFT 14:44
PROC: 3E033GC Introduction of Other Therapeutic Substance into Peripheral Vein, Percutaneous Approach (ICD-10-PCS; principal; 2022-12-13)
DX: R51.9 Headache, unspecified (principal)
CPT/HCPCS: 96374; 99284-25

== ENCOUNTER → 2023-05-23 | Emergency (ER) | payer OTHER ==
[~2023-05-23] MED LIST: KETOROLAC TROMETHAMINE 30 MG/1 ML VIAL IM ONE; KETOROLAC TROMETHAMINE 30 MG/1 ML VIAL ONE
[2023-05-23 15:42] VITALS: BP 108/72; PULSE 86; RESP 20; TEMP 99; BMI 23.0
== END | disposition home or self-care (01) ==
LOC: JER 15:31
PROC: 3E0233Z Introduction of Anti-inflammatory into Muscle, Percutaneous Approach (ICD-10-PCS; principal; 2023-05-23)
DX: G44.209 Tension-type headache, unspecified, not intractable (principal); M54.2 Cervicalgia
CPT/HCPCS: 99284-25

== ENCOUNTER 2023-09-19 10:53 | Observation (INO) | payer OTHER ==
[2023-09-19 11:14] VITALS: BMI 22.8
[2023-09-19] MEDS ORDERED: ACETAMINOPHEN 1000 MG/100 ML BAG IVPB ONE (11:26)
[2023-09-19] MEDS ORDERED: MECLIZINE HCL 25 MG TABLET (FP) PO ONE ×2 (11:26→14:12)
[2023-09-19] MEDS ORDERED: METOCLOPRAMIDE HCL INJECTION 10 MG/2 ML VIAL IVPUSH ONE ×2 (11:27→11:50)
[2023-09-19] MEDS ORDERED: LACTATED RINGERS SOLUTION 1000 ML INFUS.BAG IV ONE (11:30)
[2023-09-19] MEDS ORDERED: MECLIZINE HCL 25 MG TABLET (FP) ONE ×2 (11:52→14:25)
[2023-09-19] MEDS ORDERED: METOCLOPRAMIDE HCL INJECTION 10 MG/2 ML VIAL ONE (11:52)
[2023-09-19] MEDS ORDERED: ACETAMINOPHEN INJECTION 100 ML IVPB ONE (11:52)
[2023-09-19 12:28] LABS: BASO % 0.4 % (0-2.0); EOS % 0.3 % (0-4.5); HEMATOCRIT 38.3 % (32.4-45.2); HEMOGLOBIN 12.7 GM/dL (10.7-15.3); LYMPH % 16.4 % (8-40); MCH 31.6 pg (25.7-33.7); MCHC 33.1 g/dl (32.0-36.0); MEAN CELL VOLUME 95.4 fl (80-96); MEAN PLT VOLUME 7.6 fl (7.5-11.1); MONO % 4.6 % (3.8-10.2); NEUT % 78.3 % (42.8-82.8); PLATELET COUNT 263 10^3/uL (134-434); RBC 4.02 M/mm3 (3.60-5.2); WHITE BLOOD COUNT 5.7 K/mm3 (4.0-10.0)
[2023-09-19 12:37] LABS: ALBUMIN 3.9 g/dl (3.4-5.0); BLOOD UREA NITROGEN 4.4 mg/dL (7-18); MAGNESIUM 2.2 mg/dL (1.8-2.4)
[2023-09-19 12:40] LABS: CREATININE 0.5 mg/dL (0.55-1.3)
[2023-09-19 12:41] LABS: BILIRUBIN,TOTAL 0.4 mg/dL (0.2-1)
[2023-09-19] MEDS ORDERED: MECLIZINE HCL 25 MG TABLET (FP) PO PRN (17:08)
[2023-09-19] MEDS ORDERED: LACTATED RINGERS SOLUTION 1,000 ML/1,000 ML INFUS.BAG IV SCH (17:15)
[2023-09-19] MEDS ORDERED: ACETAMINOPHEN 500 MG TABLET (FP) PO PRN (17:20)
[2023-09-19] MEDS ORDERED: ONDANSETRON 4 MG/2 ML VIAL ONE (17:52)
[2023-09-19] MEDS: ONDANSETRON 4 MG/2 ML VIAL IVPUSH PRN (17:55)
[2023-09-19] MEDS ORDERED: ACETAMINOPHEN 325 MG TABLET (FP) ONE (22:22)
[2023-09-20 09:30] VITALS: PULSE 58
[2023-09-20] MEDS: ONDANSETRON 4 MG/2 ML VIAL IVPUSH PRN (12:38)
[2023-09-20] MEDS: MECLIZINE HCL 25 MG TABLET (FP) PO SCH ×2 (12:38→17:44)
[2023-09-20 13:49] VITALS: BP 116/66; RESP 17; TEMP 98.4
== END 2023-09-20 18:00 | disposition home or self-care (01) ==
LOC: JER 10:53 → JERBED 16:27 → J4S 23:37
PROVIDERS: ADMIT Internal Medicine; ATTEND Internal Medicine
PROC: 3E033NZ Introduction of Analgesics, Hypnotics, Sedatives into Peripheral Vein, Percutaneous Approach (ICD-10-PCS; principal; 2023-09-19)
PROC: 3E0337Z Introduction of Electrolytic and Water Balance Substance into Peripheral Vein, Percutaneous Approach (ICD-10-PCS; 2023-09-19)
PROC: 3E033GC Introduction of Other Therapeutic Substance into Peripheral Vein, Percutaneous Approach (ICD-10-PCS; 2023-09-19)
DX: O26.891 Other specified pregnancy related conditions, first trimester (principal); I95.1 Orthostatic hypotension; R51.9 Headache, unspecified; R42 Dizziness and giddiness; Z3A.01 Less than 8 weeks gestation of pregnancy; Z72.0 Tobacco use
CPT/HCPCS: 0241U-QW; 36415; 70450-TC; 76817-TC; 80053; 83735; 84702; 84703; 85025; 93005; 93010; 96361; 96374; 96375; 97116-GP; 97162-GP; 99285-25; G0378

== ENCOUNTER 2024-05-23 12:31 | Emergency (ER) | payer OTHER ==
[2024-05-23 12:37] VITALS: BP 122/77; PULSE 73; RESP 18; TEMP 98.6; BMI 23.8
[2024-05-23] MEDS ORDERED: KETOROLAC TROMETHAMINE 30 MG/1 ML VIAL ONE (13:28)
[2024-05-23] MEDS: SODIUM CHLORIDE 1,000 ML IV STA (13:36)
[2024-05-23] MEDS: KETOROLAC TROMETHAMINE 30 MG/1 ML VIAL IVPUSH ONE (13:36)
[2024-05-23 13:50] LABS: BASO % 1.1 % (0-2.0); EOS % 3.8 % (0-4.5); HEMATOCRIT 34.1 % (32.4-45.2); HEMOGLOBIN 11.5 GM/dL (10.7-15.3); LYMPH % 44.5 % (8-40); MCH 31.6 pg (25.7-33.7); MCHC 33.6 g/dl (32.0-36.0); MEAN CELL VOLUME 93.9 fl (80-96); MEAN PLT VOLUME 7.6 fl (7.5-11.1); MONO % 8.8 % (3.8-10.2); NEUT % 41.8 % (42.8-82.8); PLATELET COUNT 252 10^3/uL (134-434); RBC 3.63 M/mm3 (3.60-5.2); RDW 13.5 % (11.6-15.6); WHITE BLOOD COUNT 4.2 K/mm3 (4.0-10.0)
[2024-05-23 14:09] LABS: POTASSIUM 3.4 mmol/L (3.5-5.1)
[2024-05-23 14:11] LABS: ALBUMIN 3.6 g/dl (3.4-5.0); BLOOD UREA NITROGEN 3.3 mg/dL (7-18); CALCIUM 8.8 mg/dL (8.5-10.1)
[2024-05-23 14:14] LABS: CREATININE 0.6 mg/dL (0.55-1.3)
[2024-05-23 14:15] LABS: BILIRUBIN,TOTAL 0.4 mg/dL (0.2-1); TOT PROT 6.9 g/dl (6.4-8.2)
[2024-05-23] MEDS ORDERED: POTASSIUM CHLORIDE ORAL LIQUID 20 MEQ/15 ML ONE (14:22)
[2024-05-23] MEDS: POTASSIUM CHLORIDE ORAL LIQUID 20 MEQ/15 ML PO ONE (14:25)
== END 2024-05-23 15:43 | disposition home or self-care (01) ==
LOC: JER 12:31
PROC: 3E0333Z Introduction of Anti-inflammatory into Peripheral Vein, Percutaneous Approach (ICD-10-PCS; principal; 2024-05-23)
PROC: 3E0337Z Introduction of Electrolytic and Water Balance Substance into Peripheral Vein, Percutaneous Approach (ICD-10-PCS; 2024-05-23)
DX: G43.909 Migraine, unspecified, not intractable, without status migrainosus (principal); L56.8 Other specified acute skin changes due to ultraviolet radiation
CPT/HCPCS: 36415; 80053; 83735; 84703; 85025; 99284-25